=== PATIENT | male | born 1990 | race Hispanic/Latino ===

== ENCOUNTER 2018-01-13 19:17 | Emergency (ER) | payer SELFPAY ==
[~2018-01-13] VITALS: Ht 170.2 cm; Wt 68.0 kg
[2018-01-13] MEDS ORDERED: TETANUS/DIPHTHERIA TOX ADULT 0.5 ML SYR IM ONE (19:45)
[2018-01-13] MEDS ORDERED: HYDROCODONE/APAP 7.5MG-325MG 1 EA TAB PO PRN (19:45)
[2018-01-13] MEDS ORDERED: NEOMYCIN/POLYMYX/BACITR OINT 0.9 GM PKT ONE (21:17)
--- NOTE | 2018-01-13 21:22 | Diagnostic Imaging Report ---
FINGER LEFT HISTORY: Index finger fracture. COMPARISON: None FINDINGS: Bones: No displaced fracture. Osseous alignment is within normal limits. Joints: The joint spaces are well-maintained. Soft tissues: The soft tissues appear unremarkable. IMPRESSION: No acute radiographic abnormality. Signed by: Dr. Darell Hoover M.D. on 01/13/2018 9:19 PM
== END 2018-01-13 22:03 | disposition home or self-care (01) ==
LOC: ER 19:17
DX: S60.411A Abrasion of left index finger, initial encounter (principal); S67.191A Crushing injury of left index finger, initial encounter; W23.1XXA Caught, crushed, jammed, or pinched between stationary objects, initial encounter; Y92.008 Other place in unspecified non-institutional (private) residence as the place of occurrence of the external cause
CPT/HCPCS: 90714; 99283